=== PATIENT | male | born 1985 | race Caucasian/White ===

== ENCOUNTER 2017-08-11 20:55 | Emergency (ER) | payer OTHER ==
[2017-08-11] MEDS ORDERED: LIDOCAINE 1% 20 ML MDV ONE ×2 (21:05→21:16)
[2017-08-11] MEDS ORDERED: LIDOCAINE 2% MPF 5 ML VIAL ONE (21:05)
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
[2017-08-11] MEDS ORDERED: ONDANSETRON 4 MG/2 ML VIAL ONE (21:24)
[2017-08-11] MEDS ORDERED: TETANUS & DIPHTHERIA TOX,ADULT 0.5 ML VIAL ONE (22:14)
[2017-08-11] MEDS ORDERED: MORPHINE 4 MG/ML SYR ONE (22:22)
[2017-08-11] MEDS ORDERED: CEFAZOLIN/SWI 1gm 2 GM/20 ML SYR ONE (23:03)
[2017-08-11] MEDS ORDERED: MUPIROCIN 2% OINT 22GM TUBE TOP ONE (23:57)
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
== END 2017-08-12 01:10 | disposition home or self-care (01) ==
LOC: ER 20:55
PROC: 0JQJ0ZZ Repair Right Hand Subcutaneous Tissue and Fascia, Open Approach (ICD-10-PCS; principal; 2017-08-12)
DX: S61.401A Unspecified open wound of right hand, initial encounter (principal); W34.00XA Accidental discharge from unspecified firearms or gun, initial encounter; Y93.9 Activity, unspecified; Y92.9 Unspecified place or not applicable
CPT/HCPCS: 90714; 96374; 96375; 99285; J0690; J2405

== ENCOUNTER 2017-08-12 14:46 | Emergency (ER) | payer OTHER ==
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
== END 2017-08-12 15:54 | disposition home or self-care (01) ==
LOC: ER 14:46
DX: Z48.02 Encounter for removal of sutures (principal)